=== PATIENT | male | born 1935 | race Asian ===

== ENCOUNTER → 2016-09-20 | Outpatient (CLI) | payer OTHER, MEDICAID ==
[~2016-09-20] MED LIST: AMLO-511 PO; ASPI-556 PO; ATOR20TA86 PO; BUDE10.22 IH; GLIP5 PO; ISOS30TA6 PO; METF500T7 PO; METO-323 PO; MONT10TA21 PO; MULT-1259 PO; MULT-71 PO; PANT40TA25 PO; VALS160T2 PO
== END | disposition home or self-care (01) ==
LOC: RADPV 09:19
PROVIDERS: ATTEND Internal Medicine Critical Care Medicine
DX: J44.9 Chronic obstructive pulmonary disease, unspecified (principal); I51.7 Cardiomegaly; I70.0 Atherosclerosis of aorta; M47.814 Spondylosis without myelopathy or radiculopathy, thoracic region; M25.78 Osteophyte, vertebrae
CPT/HCPCS: 71020

== ENCOUNTER → 2017-03-26 | Outpatient (CLI) | payer OTHER ==
[~2017-03-26] MED LIST changes: -METO-323 PO; +METO25XL PO; -MULT-71 PO; +TIOT185 IH
== END | disposition home or self-care (01) ==
LOC: RADPV 08:46
PROVIDERS: ATTEND Internal Medicine
DX: I70.0 Atherosclerosis of aorta (principal); M47.814 Spondylosis without myelopathy or radiculopathy, thoracic region
CPT/HCPCS: 71020